=== PATIENT | female | born 1950 | race Caucasian/White ===

== ENCOUNTER → 2022-11-13 | Outpatient (CLI) | payer OTHER | END | disposition home or self-care (01) | LOC: RAD 13:18 | PROVIDERS: ATTEND Orthopaedic Surgery | DX: M25.572 Pain in left ankle and joints of left foot (principal); S83.201A Bucket-handle tear of unspecified meniscus, current injury, left knee, initial encounter; M25.562 Pain in left knee; M25.512 Pain in left shoulder; M79.642 Pain in left hand; W19.XXXA Unspecified fall, initial encounter ==

== ENCOUNTER → 2022-11-14 | Outpatient (CLI) | payer OTHER | END | disposition home or self-care (01) | LOC: NUCLEAR 08:00 | PROVIDERS: ATTEND Orthopaedic Surgery | DX: I82.402 Acute embolism and thrombosis of unspecified deep veins of left lower extremity (principal) ==